=== PATIENT | male | born 1990 | race African-American/Black ===

== ENCOUNTER 2018-10-05 14:12 | Emergency (ER) | payer MEDICAID ==
[~2018-10-05] VITALS: Ht 177.8 cm; Wt 108.9 kg
[2018-10-05] MEDS ORDERED: NKM (14:28)
[2018-10-05 14:40] VITALS: BP 120/69
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
[2018-10-05] MEDS ORDERED: Ketorolac 30mg Inj IM ONE (14:45)
[2018-10-05] MEDS ORDERED: IBUPROFEN600 MG ORAL (15:33)
[2018-10-05 15:38] VITALS: BP 122/83
--- NOTE | 2018-10-05 15:44 | Diagnostic Imaging Report ---
Indication: Right hand pain Findings: 3 views of the right hand were obtained. Normal bony mineralization and alignment are demonstrated. No acute fractures, erosions, or periosteal reaction are seen. Soft tissues are unremarkable. Impression: No acute findings.
== END 2018-10-05 15:41 | disposition home or self-care (01) ==
LOC: EMR 14:52
DX: S63.91XA Sprain of unspecified part of right wrist and hand, initial encounter (principal); Y04.2XXA Assault by strike against or bumped into by another person, initial encounter; Y92.89 Other specified places as the place of occurrence of the external cause
CPT/HCPCS: 73130; 96372; 99283; J1885

== ENCOUNTER 2019-10-06 05:34 | Emergency (ER) | payer MEDICAID ==
[~2019-10-06] VITALS: Ht 177.8 cm; Wt 108.9 kg
[~2019-10-06 05:34] MED LIST: IBUPROFEN600 MG ORAL; NKM
[2019-10-06 05:40] VITALS: BP 140/90
--- NOTE | 2019-10-06 05:40 | NUR ---
ED Nurse Note: Walk-in patient with complaints of intermittent chest pain with no radiation to arms. Patient currently reports no pain at this time. Will continue to monitor.
--- NOTE | 2019-10-06 05:58 | Emergency Room Report ---
History of Present Illness General Chief Complaint: Chest Pain Source: Patient (Shane Aparicio MD) Present Illness HPI This is a 28-year-old male with a history of asthma. He presents with complaint of chest pain. Onset is been intermittently for the last 2 weeks or so. Pain is usually left side. Comes on suddenly. Sharp in nature. He said last anywhere from minutes to 1015 minutes. He came in today because he got the pain while he was sleeping. It woke him up. Pain was sharp in nature. 7 out of 10. No pain now. No nausea no vomiting. No exertional component. No radiation. Nothing made it better. Nothing made it worse. No provocation. (Shane Aparicio MD) Allergies: Coded Allergies: No Known Allergies (Unverified , 10/05/18) COVID-19 Screening Contact w/high risk pt: No Recent Travel to affected area: No Experienced COVID-19 symptoms?: No (Shane Aparicio MD) Patient History Past Medical History: see triage record, old chart reviewed, asthma Past Surgical History: none Pertinent Family History: none Social History: Denies: smoking, drug use Immunizations: other Reviewed Nursing Documentation: PMH: Agreed; PSxH: Agreed (Shane Aparicio MD) Nursing Documentation-PMH Hx Asthma: Yes (Shane Aparicio MD) Review of Systems Eye: Denies: eye pain, blurred vision ENT: Denies: ear pain, nose congestion, throat swelling Respiratory: Denies: cough, shortness of breath Cardiovascular: Reports: chest pain; Denies: palpitations Gastrointestinal: Denies: abdominal pain, diarrhea, nausea, vomiting Musculoskeletal: Denies: back pain, joint pain Skin: Denies: rash Neurological: Denies: headache, numbness Endocrine: Denies: increased thirst, increased urine Hematologic/Lymphatic: Denies: easy bruising All Other Systems: negative except mentioned in HPI (Shane Aparicio MD) Physical Exam Vital Signs Date Time Temp Pulse Resp B/P (MAP) Pulse Ox O2 Delivery O2 Flow Rate FiO2 10/06/19 05:40 98.1 82 20 140/90 (107) 95 Room Air Vitals normal Sp02 EP Interpretation: reviewed, normal General Appearance: well appearing, no apparent distress, alert Head: normocephalic, atraumatic Eyes: bilateral eye PERRL, bilateral eye EOMI ENT: hearing grossly normal, normal pharynx Neck: full range of motion, supple, no meningismus Respiratory: chest non-tender, lungs clear, normal breath sounds Cardiovascular #1: regular rate, rhythm, no murmur Gastrointestinal: normal bowel sounds, non tender, no mass, no organomegaly, no bruit, non-distended Musculoskeletal: back normal, normal range of motion, gait/station normal Psychiatric: mood/affect normal (Shane Aparicio MD) Medical Decision Making Diagnostic Impression: Primary Impression: Chest pain Qualified Codes: R07.9 - Chest pain, unspecified ER Course Patient presents with atypical chest pain. Low risk for ACS. EKG normal. No evidence of ACS, PE, dissection to name a few. Will discharge home if labs are unremarkable. (Shane Aparicio MD) Laboratory Tests Test 10/06/19 05:55 10/06/19 06:22 10/06/19 06:58 White Blood Count 6.1 K/UL (4.8-10.8) Red Blood Count 5.34 M/UL (4.70-6.10) Hemoglobin 15.3 G/DL (14.2-18.0) Hematocrit 46.0 % (42.0-52.0) Mean Corpuscular Volume 86 FL (80-99) Mean Corpuscular Hemoglobin 28.7 PG (27.0-31.0) Mean Corpuscular Hemoglobin Concent 33.3 G/DL (32.0-36.0) Red Cell Distribution Width 11.8 % (11.6-14.8) Platelet Count 203 K/UL (150-450) Mean Platelet Volume 7.0 FL (6.5-10.1) Neutrophils (%) (Auto) 65.1 % (45.0-75.0) Lymphocytes (%) (Auto) 17.6 % (20.0-45.0) L Monocytes (%) (Auto) 8.8 % (1.0-10.0) Eosinophils (%) (Auto) 5.6 % (0.0-3.0) H Basophils (%) (Auto) 2.9 % (0.0-2.0) H Sodium Level 142 MMOL/L (136-145) 139 MMOL/L (136-145) Potassium Level 5.2 MMOL/L (3.5-5.1) H 4.4 MMOL/L (3.5-5.1) Chloride Level 105 MMOL/L (98-107) 103 MMOL/L (98-107) Carbon Dioxide Level 27 MMOL/L (21-32) 30 MMOL/L (21-32) Anion Gap 10 mmol/L (5-15) 6 mmol/L (5-15) Blood Urea Nitrogen 14 mg/dL (7-18) 14 mg/dL (7-18) Creatinine 1.0 MG/DL (0.55-1.30) 1.0 MG/DL (0.55-1.30) Estimated Glomerular Filtration Rate > 60 mL/min (>60) > 60 mL/min (>60) Glucose Level 104 MG/DL (74-106) 98 MG/DL (74-106) Calcium Level 9.4 MG/DL (8.5-10.1) 9.5 MG/DL (8.5-10.1) Total Bilirubin 0.5 MG/DL (0.2-1.0) Aspartate Amino Transferase (AST) 39 U/L (15-37) H Alanine Aminotransferase (ALT) 34 U/L (12-78) Alkaline Phosphatase 52 U/L (46-116) Troponin I 0.000 ng/mL (0.000-0.056) Total Protein 7.6 G/DL (6.4-8.2) Albumin 4.0 G/DL (3.4-5.0) Globulin 3.6 g/dL Albumin/Globulin Ratio 1.1 (1.0-2.7) D-Dimer < 0.19 mg/L FEU (Alessio Diallo MD) EKG Diagnostic Results Rate: normal Rhythm: NSR ST Segments: no acute changes ASA given to the pt in ED: Yes (Shane Aparicio MD) Rhythm Strip Diag. Results EP Interpretation: yes Rate: 80 Rhythm: NSR, no PVC's, no ectopy (Shane Aparicio MD) Chest X-Ray Diagnostic Results Chest X-Ray Diagnostic Results : Chest X-Ray Ordered: Yes # of Views/Limited/Complete: 1 View Indication: Chest Pain EP Interpretation: Yes Interpretation: no consolidation, no effusion, no acute cardiopulmonary disease Impression: No acute disease Electronically Signed by: Shane Aparicio MD (Shane Aparicio MD) Last Vital Signs Date Time Temp Pulse Resp B/P (MAP) Pulse Ox O2 Delivery O2 Flow Rate FiO2 10/06/19 05:40 98.1 82 20 140/90 (107) 95 Room Air Status: unchanged (Shane Aparicio MD) Reevaluation Time: 09:00 Reevaluation Impression Assumed care of the patient approximately 6:30 AM from previous provider. Briefly this a 28-year-old male presenting for evaluation of chest pain. Symptoms have resolved. At the time of signout awaiting labs. They have returned within normal limits with a negative troponin, negative d-dimer. Initially reported as hyperkalemia however repeat showed potassium within normal limits. Attribute this to a lab error. Patient be discharged with isolation precautions for 2 weeks. We will follow-up with his PMD. Discussed reasons to return to the emergency department. He understands and agrees with the treatment plan. (Alessio Diallo MD) Disposition: HOME, SELF-CARE Condition: Stable Patient Instructions: Nonspecific Chest Pain Shane Aparicio MD Oct 06, 2019 05:58 Alessio Diallo MD Oct 06, 2019 09:36
[2019-10-06] MEDS ORDERED: Aspirin Baby 81mg ORAL ONE (06:00)
--- NOTE | 2019-10-06 06:15 | NUR ---
ED Nurse Note: Blood and urine specimen collected and walked down to lab. Will continue to monitor for results.
[2019-10-06 06:23] LABS: BASOPHILS % (AUTO) 2.9 % (0.0-2.0); EOSINOPHILS % (AUTO) 5.6 % (0.0-3.0); HEMOGLOBIN 15.3 G/DL (14.2-18.0); LYMPHOCYTES % (AUTO) 17.6 % (20.0-45.0); MEAN CORPUSCULAR VOLUME 86 FL (80-99); MONOCYTES % (AUTO) 8.8 % (1.0-10.0); NEUTROPHILS % (AUTO) 65.1 % (45.0-75.0); PLATELET COUNT 203 K/UL (150-450); RED BLOOD COUNT 5.34 M/UL (4.70-6.10); RED CELL DISTRIBUTION WIDTH 11.8 % (11.6-14.8); WHITE BLOOD COUNT 6.1 K/UL (4.8-10.8)
[2019-10-06 06:38] LABS: ANION GAP 10 mmol/L (5-15); BLOOD UREA NITROGEN 14 mg/dL (7-18); CALCIUM 9.4 MG/DL (8.5-10.1); CARBON DIOXIDE 27 MMOL/L (21-32); CHLORIDE 105 MMOL/L (98-107); POTASSIUM 5.2 MMOL/L (3.5-5.1); SODIUM 142 MMOL/L (136-145)
[2019-10-06 06:42] LABS: ALANINE AMINOTRANSFERASE 34 U/L (12-78); ALBUMIN/GLOBULIN RATIO 1.1 (1.0-2.7); ALKALINE PHOSPHATASE 52 U/L (46-116); ASPARTATE AMINO TRANSFERASE 39 U/L (15-37); BILIRUBIN,TOTAL 0.5 MG/DL (0.2-1.0)
--- NOTE | 2019-10-06 06:58 | NUR ---
ED Nurse Note: Additional green top drawn for repeat CMP regarding elevated potassium.
--- NOTE | 2019-10-06 07:02 | NUR ---
HAND-OFF: Report given to Saqib BROWN.
--- NOTE | 2019-10-06 07:05 | NUR ---
ED Nurse Note: Patient resting in bed, no s/s of acute distress. VSS
--- NOTE | 2019-10-06 07:05 | Diagnostic Imaging Report ---
EXAM: XR Chest, 1 View CLINICAL HISTORY: CP TECHNIQUE: Frontal view of the chest. COMPARISON: No relevant prior studies available. FINDINGS: Lungs: Evaluation slightly limited by lung hypoinflation, which accentuates vascular and interstitial markings. No consolidation. No evidence of pulmonary edema. Pleural space: Unremarkable. No pneumothorax. Heart: Unremarkable. No cardiomegaly. Mediastinum: Unremarkable. No mediastinal widening or shift. Bones/joints: No evidence of acute osseous abnormality. IMPRESSION: No definite active cardiopulmonary abnormality.
[2019-10-06 07:21] LABS: ANION GAP 6 mmol/L (5-15); BLOOD UREA NITROGEN 14 mg/dL (7-18); CALCIUM 9.5 MG/DL (8.5-10.1); CARBON DIOXIDE 30 MMOL/L (21-32); CHLORIDE 103 MMOL/L (98-107); POTASSIUM 4.4 MMOL/L (3.5-5.1); SODIUM 139 MMOL/L (136-145)
[2019-10-06 08:00] VITALS: BP 136/84
--- NOTE | 2019-10-06 08:00 | NUR ---
ER DISCHARGE NOTE: Patient cleared for DC by Dr. Diallo. pt is aox4, on room air, with stable vital signs. pt was given dc and prescription instructions, pt was able to verbalize understanding, pt id band and iv site removed without complications. pt is able to ambulate with steady gait. pt took all belongings.
== END 2019-10-06 08:00 | disposition home or self-care (01) ==
LOC: EMR 06:15
DX: R07.9 Chest pain, unspecified (principal)
CPT/HCPCS: 36415; 71045; 80048; 80053; 84484; 85025; 85379; 93005; Z7502; 99284

== ENCOUNTER 2020-03-31 17:14 | Emergency (ER) | payer MEDICAID ==
[~2020-03-31] VITALS: Ht 177.8 cm; Wt 112.5 kg
[2020-03-31 17:20] VITALS: BP 140/78
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
--- NOTE | 2020-03-31 17:35 | NUR ---
ED Nurse Note: blood sent to lab
--- NOTE | 2020-03-31 17:39 | NUR ---
ED Nurse Note: decontamination technician at bedside performing CXR
[2020-03-31] MEDS ORDERED: IBUPROFEN600 M1 ORAL (18:28)
[2020-03-31 18:32] VITALS: BP 135/69
--- NOTE | 2020-03-31 18:32 | NUR ---
ED Nurse Note: Pt cleared by health care Provider for discharge. DC instructions/prescription was given and explained to pt and verbalized understanding of teachings. All medical deviecs such as ID band removed. Pt is AAO x4, ambulatory and left with all personal belongings.
--- NOTE | 2020-03-31 18:51 | Emergency Room Report ---
History of Present Illness General Chief Complaint: Chest Pain Source: Patient Present Illness HPI 29-year-old male presents to ED for evaluation of chest pain. States he has been having pain for the last 10 days. Dull, 3 out of 10, nonradiating. Denies shortness of breath. States it is somewhat positional and changes from standing to sitting and when stretching his arms. States he was seen here in September for similar presentation. States it did resolve. Denies alcohol or drug use. No other aggravating relieving factors. Denies any other associated symptoms Allergies: Coded Allergies: No Known Allergies (Unverified , 10/05/18) COVID-19 Screening Contact w/high risk pt: No Recent Travel to affected area: No Experienced COVID-19 symptoms?: No COVID-19 Testing performed WHARF TENDER HEAD: No Patient History Past Medical History: none Past Surgical History: none Pertinent Family History: none Social History: Denies: smoking, alcohol use, drug use Immunizations: UTD Reviewed Nursing Documentation: PMH: Agreed; PSxH: Agreed Nursing Documentation-PMH Hx Asthma: Yes Review of Systems All Other Systems: negative except mentioned in HPI Physical Exam Vital Signs Date Time Temp Pulse Resp B/P (MAP) Pulse Ox O2 Delivery O2 Flow Rate FiO2 03/31/20 17:17 98.2 88 18 143/91 (108) 95 Room Air Sp02 EP Interpretation: reviewed, normal General Appearance: no apparent distress, alert, GCS 15, non-toxic Head: normocephalic, atraumatic Eyes: bilateral eye normal inspection, bilateral eye PERRL ENT: hearing grossly normal, normal pharynx, no angioedema, normal voice Neck: full range of motion, supple/symm/no masses Respiratory: chest non-tender, lungs clear, normal breath sounds, speaking full sentences Cardiovascular #1: regular rate, rhythm, no edema Cardiovascular #2: 2+ carotid (R), 2+ carotid (L), 2+ radial (R), 2+ radial (L), 2+ dorsalis pedis (R), 2+ dorsalis pedis (L) Gastrointestinal: normal bowel sounds, non tender, soft, non-distended, no guarding, no rebound Rectal: deferred Genitourinary: normal inspection, no CVA tenderness Musculoskeletal: back normal, normal range of motion, gait/station normal, non- tender Neurologic: alert, motor strength/tone normal, oriented x3, sensory intact, responsive, speech normal Psychiatric: judgement/insight normal, memory normal, mood/affect normal, no suicidal/homicidal ideation Reflexes: 3+ bicep (R), 3+ bicep (L), 3+ tricep (R), 3+ tricep (L), 3+ knee (R), 3+ knee (L) Lymphatic: no adenopathy Medical Decision Making Diagnostic Impression: Primary Impression: Chest pain Qualified Codes: R07.9 - Chest pain, unspecified ER Course Hospital Course 29-year-old M presents ED complaining of chest pain Differential diagnoses include: Rib fracture, SD/unstable angina, contusion, muscle strain Clinical course Patient placed on stretcher. After initial history and physical I ordered labs, EKG, chest x-ray. labs reviewed- trop negative EKG - NSR, no acute ischemic changes interpreted by me Chest x-ray-no cardiomegaly, no rib fracture, no pneumothorax, no acute process I reviewed EMR. Patient was seen here in September for similar presentation. Had full work-up including troponin, d-dimer. Work-up was unremarkable. Based on my assessment I believe pain is muscular. Patient has no cardiac risk factors. Vitals stable. Pain is somewhat positional. Given Motrin in ED. Will discharge home. Safe for discharge. I will provide referrals I. I feel this is a highly complex case requiring extensive working including EKG/Rhythm strip, Xray/CT/US, Blood/urine lab work, repeat exams while in ED, and administration of strong opiates/narcotics for pain control, admission to hospital or close patient follow up. Diagnosis - chest pain Stable and discharged to home. Instructed to followup with PMD. Return to ED if symptoms recur or worsen Laboratory Tests Test 03/31/20 17:30 Troponin I 0.013 ng/mL (0.000-0.056) EKG Diagnostic Results Rate: normal Rhythm: NSR ST Segments: no acute changes ASA given to the pt in ED: No Rhythm Strip Diag. Results EP Interpretation: yes Rhythm: NSR, no PVC's, no ectopy Chest X-Ray Diagnostic Results Chest X-Ray Diagnostic Results : Chest X-Ray Ordered: Yes # of Views/Limited/Complete: 1 View Indication: Chest Pain EP Interpretation: Yes Interpretation: no consolidation, no effusion, no pneumothorax, no acute cardiopulmonary disease Impression: No acute disease Electronically Signed by: Electronically signed by Dionicio Troncoso MD Last Vital Signs Date Time Temp Pulse Resp B/P (MAP) Pulse Ox O2 Delivery O2 Flow Rate FiO2 03/31/20 18:32 97.6 81 18 135/69 95 Room Air Status: improved Disposition: HOME, SELF-CARE Condition: Stable Scripts Ibuprofen* (MOTRIN*) 600 Mg Tablet 600 MG ORAL Q8H PRN for FOR PAIN, #30 TAB 0 Refills Prov: Dionicio Troncoso MD 03/31/20 Referrals: Bryce Walsh [facility] Patient Instructions: Nonspecific Chest Pain Dionicio Troncoso MD Mar 31, 2020 18:51
--- NOTE | 2020-04-01 10:52 | Diagnostic Imaging Report ---
Procedure: XRAY Chest 1v Reason for study: Chest pain Comparison films: 10/06/2019. FINDINGS: A single one view chest is obtained. Vascularity is normal. The lung mcdowell are clear bilaterally. Cardiac and mediastinal silhouette are within normal limits. CP angles are sharp. The bony thorax appear unremarkable. IMPRESSION: NO ACUTE CARDIOPULMONARY DISEASE.
== END 2020-03-31 18:32 | disposition home or self-care (01) ==
LOC: EMR 17:41
DX: R07.9 Chest pain, unspecified (principal)
CPT/HCPCS: 71045; 84484; 93005; Z7502; 99283

== ENCOUNTER 2020-06-25 16:20 | Emergency (ER) | payer MEDICAID ==
[~2020-06-25] VITALS: Ht 177.8 cm; Wt 108.9 kg
[~2020-06-25 16:20] MED LIST changes: +IBUPROFEN600 M1 ORAL
[2020-06-25 17:15] VITALS: BP 130/87
--- NOTE | 2020-06-25 17:16 | NUR ---
ED Nurse Note:pt. c/o stuffy nose and loss of smell, VSS
--- NOTE | 2020-06-25 17:22 | Emergency Room Report ---
History of Present Illness General Chief Complaint: Upper Respiratory Illness Source: Patient Present Illness HPI 29-year-old male presents to the emergency department complaining of loss of smell along with some nasal congestion since yesterday. Patient reports that the nasal congestion did resolve temporarily. Patient denies loss of taste. He denies fevers or chills. Patient denies cough, shortness of breath or wheezing. He does report history of asthma. He states he has not been tested for COVID- 19. He denies rashes. He denies MAYS, CP or palpitations. Denies sneezing or rhinorrhea. No other aggravating or relieving factors at this time. 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 Patient History Past Medical History: see triage record, asthma Past Surgical History: none Pertinent Family History: none Reviewed Nursing Documentation: PMH: Agreed; PSxH: Agreed Nursing Documentation-PMH Past Medical History: No Stated History Hx Asthma: Yes Review of Systems All Other Systems: negative except mentioned in HPI Physical Exam Vital Signs Date Time Temp Pulse Resp B/P (MAP) Pulse Ox O2 Delivery O2 Flow Rate FiO2 06/25/20 16:46 99.0 94 15 130/87 (101) 98 Sp02 EP Interpretation: reviewed, normal General Appearance: no apparent distress, alert, GCS 15, non-toxic Head: normocephalic, atraumatic Eyes: bilateral eye normal inspection, bilateral eye PERRL ENT: hearing grossly normal, normal pharynx, normal voice, other - nares are patent bilaterally. Neck: full range of motion Respiratory: lungs clear, normal breath sounds, no respiratory distress, no accessory muscle use, no wheezing, speaking full sentences Cardiovascular #1: regular rate, rhythm, normal capillary refill Musculoskeletal: normal range of motion, gait/station normal, non-tender Neurologic: alert, motor strength/tone normal, oriented x3, sensory intact, responsive, speech normal Psychiatric: judgement/insight normal Skin: no rash, normal color Lymphatic: no adenopathy Medical Decision Making PA Attestation Dr. Katz is my supervising Physician whom patient management has been discussed with. Diagnostic Impression: Primary Impression: Upper respiratory infection Qualified Codes: J06.9 - Acute upper respiratory infection, unspecified ER Course 29-year-old male presents to the emergency department complaining of loss of smell along with some nasal congestion since yesterday. Patient reports that the nasal congestion did resolve temporarily. Patient denies loss of taste. He denies fevers or chills. Patient denies cough, shortness of breath or wheezing. He does report history of asthma. He states he has not been tested for COVID- 19. He denies rashes. He denies MAYS, CP or palpitations. Denies sneezing or rhinorrhea. No other aggravating or relieving factors at this time. Ddx considered but are not limited to URI, pneumonia, PE, strep pharyngitis, meningitis, COVID-19 Vital signs: Pt. is afebrile, the remaining VS are WNL H&PE are most consistent with [place] Viral COVID-19 URI- no meningeal signs, oropharynx is not involved, no evidence of bacterial infection at this time. The patient is nontoxic in appearance in no acute distress or respiratory distre ss. No increase in respiratory effort. Lungs are clear. ORDERS: none required at this time, the diagnosis is clinical ED INTERVENTIONS: None required at this time. --PT. EDUCATION: Outpatient non emergent COVID-19 testing candidate. This patient was evaluated in the context of the global COVID-19 pandemic, which necessitated consideration that the patient might be at risk for infection with the SARS-COV-2 virus that causes COVID-19. Institutional protocols and algorithms that pertaining to the evaluation of patients at risk for COVID-19 are in a state of rapid change based on information released by multiple regulatory bodies including the CDC and federal and state organizations. These policies and algorithms were followed during the patient's care in the emergency department DISCHARGE: At this time pt. is stable for d/c to home. Will provide printed patient care instructions, and any necessary prescriptions. Care plan and follow up instructions have been discussed with the patient prior to discharge. Last Vital Signs Date Time Temp Pulse Resp B/P (MAP) Pulse Ox O2 Delivery O2 Flow Rate FiO2 06/25/20 17:15 94 15 06/25/20 17:15 99.0 130/87 98 Disposition: HOME, SELF-CARE Condition: Stable Scripts Oxymetazoline HCl (Afrin) 15 Ml [place] 2 SPRAYS NASAL TWICE A DAY for 3 Days, #30 SPRAY Prov: Cyn Lopez 06/25/20 Albuterol Sulfate* (Albuterol Sulfate Hfa*) 8.5 Gm Hfa.aer.ad 2 PUFF INH Q4H, #1 INH Prov: Cyn Lopez 06/25/20 Acetaminophen* (TYLENOL EXTRA STRENGTH*) 500 Mg Tablet 500 MG ORAL Q8H PRN for Prn Headache/Temp > 101, #30 TAB 0 Refills Prov: Cyn Lopez 06/25/20 Referrals: NON PHYSICIAN (PCP) Bryce Pinto [facility] Patient Instructions: Upper Respiratory Infection, Adult Additional Instructions: Read and follow instructions for at home care of COVID-19. You are given prescriptions for symptoms that are usually anticipated with this type of infection. Please note because you are asthmatic Pay close attention to any increase in effort of breathing, or inability of your albuterol to work. Take medications as directed. Follow up with a Primary Care Provider in 3-5 days, even if your symptoms have resolved. --Please review list of primary care clinics, if you do not already have a primary care provider Return sooner to ED if new symptoms occur, or current symptoms become worse. - Please note that this Emergency Department Report was dictated using [employer]custom motorcycle painter technology software, occasionally this can lead to erroneous entry secondary to interpretation by the dictation equipment. Cyn Lopez Jun 25, 2020 17:22
[2020-06-25] MEDS ORDERED: TYLENOL EXTRA500 MG ORAL (17:23)
[2020-06-25] MEDS ORDERED: ALBUTEROL SULF8.5 G1 INH (17:23)
[2020-06-25] MEDS ORDERED: AFRIN NASAL SPR30 ML NASAL (17:23)
[2020-06-25 17:30] VITALS: BP 130/87
== END 2020-06-25 17:30 | disposition home or self-care (01) ==
LOC: EMR 17:12
DX: J06.9 Acute upper respiratory infection, unspecified (principal); J45.909 Unspecified asthma, uncomplicated
CPT/HCPCS: 99282